=== PATIENT | female | born 1940 | race Caucasian/White ===

== ENCOUNTER → 2016-05-22 | Outpatient (CLI) | payer MEDICARE, OTHER ==
[~2016-05-22] MED LIST: AMBIEN5 MG PO; ASPIRIN 32325 MG/TAB PO; CALTRATE-600 W600 MG PO; COLACE 100100 MG/CAP PO; COMPAZINE 110 MG/TAB PO; FIBER CHOICE1 CTB PO; FISH OIL CONC1000 MG PO; GLUTAMINE; LACRI-LUBE1 OIN OP; LEVAQUIN; LEVAQUIN 5500 MG/TAB PO; LEVOTHYROXIN0.075 MG PO; LUBRICANT EYE DROPS OP; MIRALAX 17GM PK1 PKT PO; MULTIPLE VITAMI1 TAB PO; MVI PO
== END ==
LOC: MC.RAD 10:08
DX: Z12.31 Encounter for screening mammogram for malignant neoplasm of breast (principal)

== ENCOUNTER → 2021-06-12 | Outpatient (CLI) | payer MEDICARE, OTHER | LOC: MC.RAD 08:58 | DX: Z12.31 Encounter for screening mammogram for malignant neoplasm of breast (principal) ==

== ENCOUNTER → 2023-07-16 | Outpatient (CLI) | payer MEDICARE, OTHER ==
[~2023-07-16] VITALS: Ht 167.6 cm; Wt 59.0 kg
[~2023-07-16] MED LIST changes: +CALQUENCE100 M1 PO; +CORDARONE200 MG/TAB PO; +ELIQUIS 5MG PO; +FISH OIL 1000MG1 CAP PO; +FLAXSEED OIL1000 MG PO; +FOSAMAX 70MG TA70 MG PO; +GENTEALSEVERE OP; +LEVOXYL0.075 MG PO; +LIPITOR 10MG10 MG PO; +MASON NATURAL1000 MG PO; +METAMUCIL0.52 G1 PO; +METAMUCIL3.4 GM/DOS PO; +MULTI VITAMINS1 TAB PO; +ONE-A-DAY ESSE1 EACH PO; +PACERONE400 MG PO; +REFRESH LIQUIGE15 M1 OP; +SYNTHROID0.075 MG/T PO; +TURMERIC500 MG PO; +VITAMIN D31000 I1 PO
[2023-07-16 09:09] VITALS: BP 116/67; PULSE 71; TEMP 97.7
[2023-07-16 10:30] VITALS: BP 98/56; PULSE 71
== END ==
LOC: COL.RAD 07:14
DX: J90 Pleural effusion, not elsewhere classified (principal); C83.18 Mantle cell lymphoma, lymph nodes of multiple sites

== ENCOUNTER 2023-07-29 06:04 | Day surgery (SDC) | payer MEDICARE, OTHER ==
[~2023-07-29] VITALS: Ht 167.6 cm; Wt 59.8 kg
[~2023-07-29 06:04] MED LIST changes: +LR 1,000 ML IV SCH
[2023-07-29 07:12] VITALS: BP 105/69; PULSE 75; TEMP 97.6
[2023-07-29] MEDS ORDERED: NS 10 ML IV ONE (07:24)
[2023-07-29] MEDS ORDERED: fentaNYL 50 MCG/ML 2 ML VIAL ONE (07:24)
[2023-07-29] MEDS ORDERED: Ondansetron 4 MG/2 ML VIAL ONE (07:24)
[2023-07-29] MEDS ORDERED: Lidocaine PF 2% (20 MG/ML) 5 ML VIAL ONE (07:24)
[2023-07-29] MEDS ORDERED: dexAMETHasone 10 MG/ML VIAL ONE (07:24)
[2023-07-29] MEDS ORDERED: hydrALAZINE 20 MG/ML 1 ML VIAL IV PRN (07:45)
[2023-07-29] MEDS ORDERED: Ondansetron 4 MG/2 ML VIAL IV PRN ×2 (07:45→09:00)
[2023-07-29] MEDS ORDERED: Meperidine 50 MG/ML 1 ML VIAL IV PRN (07:45)
[2023-07-29] MEDS ORDERED: Morphine 2 MG/1 ML VIAL [PACU/SDC ONLY] IV PRN (07:45)
[2023-07-29] MEDS ORDERED: Lidocaine PF 2% (20 MG/ML) 10 ML POLY AMP IJ ONE (08:27)
[2023-07-29] MEDS ORDERED: ePHEDrine 50 MG/ML VIAL ONE (08:33)
[2023-07-29 09:00] VITALS: BP 99/42; PULSE 78; TEMP 97.7
[2023-07-29] MEDS ORDERED: Acetaminophen 325 MG TAB PO PRN (09:00)
[2023-07-29] MEDS ORDERED: Morphine 4 MG/ML VIAL IV PRN (09:00)
[2023-07-29 09:15] VITALS: BP 104/44; PULSE 76
[2023-07-29 09:30] VITALS: BP 101/41; PULSE 72
--- NOTE | 2023-07-29 09:45 | NUR ---
0900 RETURNS TO ROOM 7 FROM OR PER CART WITH HOB ELEVATED 40 DEGREES. AWAKE, ALERT. RESP UNLABORED. VITAL SIGNS OBTAINED. BAN[place] R[place] NECK CLEAN DRY AND INTACT. PORT SITE RIGHT CHEST ACCESSED, NO REDNESS, DRAINAGE OR EDEMA OBSERVED. TEGADERM INTACT. CALL LIGHT AT SIDE. 0915 HOB ELEVATED 70 DEGREES. TOLERATES PO JUICE WITHOUT NAUSEA. HERE 0920 DISCHARGE INSTRUCTIONS REVIEWED. PATIENT VERBALIZES UNDERSTANDING. COPY PROVIDED IN DISCHARGE FOLDER 0916 SITS ON EDGE OF CART. DRESSES WITH MINIMAL ASSIST FROM .
== END 2023-07-29 09:48 | disposition home or self-care (01) ==
LOC: SDCO 06:04
DX: C83.10 Mantle cell lymphoma, unspecified site (principal); Z45.2 Encounter for adjustment and management of vascular access device; I10 Essential (primary) hypertension; Z79.01 Long term (current) use of anticoagulants
CPT/HCPCS: C1788; J0690; J1100; J1644; J2405; J2704; J3010; J7120

== ENCOUNTER → 2023-12-05 | Outpatient (CLI) | payer MEDICARE, OTHER ==
[~2023-12-05] MED LIST changes: -LR 1,000 ML IV SCH
== END ==
LOC: COL.VAS 12:56
DX: I31.39 Other pericardial effusion (noninflammatory) (principal); J90 Pleural effusion, not elsewhere classified; C83.18 Mantle cell lymphoma, lymph nodes of multiple sites

== ENCOUNTER 2024-02-20 10:03 | Emergency (ER) | payer MEDICARE, OTHER ==
[~2024-02-20] VITALS: Ht 167.6 cm; Wt 55.5 kg
[2024-02-20 10:12] VITALS: BP 112/59; TEMP 97.4
[2024-02-20] MEDS ORDERED: Alteplase 1 MG/ML 2 ML VIAL ICA ONE (11:00)
[2024-02-20 12:45] VITALS: PULSE 73
== END 2024-02-20 12:45 ==
LOC: COL.ER 10:03
DX: T82.898A Other specified complication of vascular prosthetic devices, implants and grafts, initial encounter (principal); Z85.79 Personal history of other malignant neoplasms of lymphoid, hematopoietic and related tissues; Z91.040 Latex allergy status